=== PATIENT | male | born 1945 | race Caucasian/White ===

== ENCOUNTER → 2018-04-25 | Outpatient (CLI) | payer MEDICARE, OTHER ==
--- NOTE | 2018-04-25 15:45 | RADIOLOGY REPORT (SQ) ---
EXAM DESCRIPTION: VENOUS UNILATERAL LOWER COMPLETED DATE/TIME: 04/25/2018 3:26 pm REASON FOR STUDY: PAIN IN LEFT LEG M25.562 PAIN IN LEFT KNEE M25.469 EFFUSION, UNSPECIFIED KNEE M6 6.0 RUPTURE OF POPLITEAL CYST COMPARISON: None. TECHNIQUE: Dynamic and static castano scale and color images acquired of the left leg venous system. Se lected spectral images acquired with additional compression and augmentation maneuvers. The contralat eral common femoral vein and saphenofemoral junction were also imaged. Images stored on PACS. LIMITATIONS: None. FINDINGS: LEFT COMMON FEMORAL: Normal phasicity, compression and augmentation. No visualized echogenic material on g ray scale. No defects on color images. FEMORAL: Normal compression and augmentation. No visualized echogenic material on castano scale. No defe cts on color images. POPLITEAL: Normal compression, augmentation. No visualized echogenic material on castano scale. No defec ts on color images. CALF VESSELS: Normal compression, augmentation. No visualized echogenic material on castano scale. No de fects on color images. GSV and SSV: Normal compression, augmentation. No visualized echogenic material on castano scale. No def ects on color images. ANY DEEP VENOUS INSUFFICIENCY: No reflux on Valsalva ANY EVIDENCE OF POPLITEAL CYST: No. OTHER: No other significant finding. RIGHT COMMON FEMORAL VEIN AND SAPHENOFEMORAL JUNCTION: Normal phasicity, compression and augmentation. No visualized echogenic material on castano scale. No de fects on color images. IMPRESSION: NO EVIDENCE OF DVT OR SVT IN THE LEFT LEG. TECHNICAL DOCUMENTATION: JOB ID: [id number] [employer]- All Rights Reserved Reading location - IP/workstation name: [facility]
== END ==
LOC: SP 14:34
PROVIDERS: ATTEND Orthopaedic Surgery Sports Medicine
DX: M25.562 Pain in left knee (principal); M66.0 Rupture of popliteal cyst; M25.462 Effusion, left knee
CPT/HCPCS: 93971